=== PATIENT | female | born 1945 | race Caucasian/White ===

== ENCOUNTER 2024-07-27 08:50 | Observation (INO) | payer MEDICARE ==
[2024-07-22 13:25] LABS: BASOPHILS # (AUTO) 0.1 X10'3 (0-0.2); EOSINOPHILS # (AUTO) 0.1 X10'3 (0-0.9); EOSINOPHILS % (AUTO) 0.7 % (0-6); LYMPHOCYTES # (AUTO) 1.3 X10'3 (1.1-4.8); LYMPHOCYTES % (AUTO) 14.3 % (21-51); MEAN CORPUSCULAR HEMOGLOBIN 30.5 PG (27.0-31.0); MEAN CORPUSCULAR HGB CONC 33.5 g/dL (33.0-36.5); MEAN CORPUSCULAR VOLUME 91.1 FL (78-98); MEAN PLATELET VOLUME 7.3 FL (7.4-10.4); MONOCYTES # (AUTO) 0.5 X10'3 (0-0.9); MONOCYTES % (AUTO) 5.9 % (2-12); NEUTROPHILS # (AUTO) 7.1 X10'3 (1.8-7.7); NEUTROPHILS % (AUTO) 78.1 % (42-75); PRE OP HEMATOCRIT 44.8 % (35.0-45.0); PRE OP PLATELET COUNT 357 X10'3 (140-440); PRE OP WHITE BLOOD COUNT 9.2 10'3 (4.8-10.8); RED BLOOD COUNT 4.92 X10'6 (4.20-5.60); RED CELL DISTRIBUTION WIDTH 15.1 % (11.5-14.5)
[2024-07-22 13:35] LABS: ALBUMIN 3.7 G/DL (3.4-5.0); ALBUMIN/GLOBULIN RATIO 0.9 (1.1-1.5); ALKALINE PHOSPHATASE 47 IU/L (46-116); BLOOD UREA NITROGEN 10 MG/DL (7-18); BUN/CREATININE RATIO 10.6 (10.0-20.0); CALCIUM 8.5 MG/DL (8.5-10.1); CHLORIDE 99 MMOL/L (99-107); CREATININE 0.94 MG/DL (0.40-0.90); PRE OP ALT 18 U/L (30-65); PRE OP ANION GAP 8 (8-16); PRE OP AST 20 U/L (10-37); PRE OP BILIRUB, TOTAL 0.5 MG/DL (0.0-1.0); PRE OP GLUCOSE 99 MG/DL (70-104); PRE OP POTASSIUM 4.5 MMOL/L (3.4-5.1); PRE OP SODIUM 136 MMOL/L (135-145); TOTAL CARBON DIOXIDE 29.5 MMOL/L (24-32); TOTAL PROTEIN 7.7 G/DL (6.4-8.2); eGFR 58 ML/MIN
[~2024-07-27] VITALS: Ht 170.2 cm; Wt 48.3 kg
[2024-07-27] VITALS (30 sets, daily range): BP systolic 128–172; BP diastolic 53–86; PULSE 59–86; RESP 11–18; TEMP 97–98.4; O2SAT 88–100
[2024-07-27] MEDS: ceFAZolin 2gm in dextrose, iso 50 ML IV ONE (05:30)
[~2024-07-27 08:50] MED LIST: DEXT30CA6 PO; ENAL10TA PO; SIMV-342 PO
[2024-07-27] MEDS ORDERED: BUPIVAcaine 2.5mg/ml inj 50ml vial (contains preservative) ONE (09:18)
[2024-07-27] MEDS ORDERED: methylene blue (5mg/ml) 50mg/10ml ampul IV ONE (09:18)
[2024-07-27] MEDS: famotidine 20mg tablet PO ONE (09:33)
[2024-07-27] MEDS: ringers solution, lacted 1,000 ML IV SCH ×2 (09:33→16:31)
[2024-07-27] MEDS ORDERED: LIDOcaine 1%/PF 5ML 10 MG/ML VIAL ONE (11:09)
[2024-07-27] MEDS ORDERED: propofol inj 20 ML IV ONE (11:09)
[2024-07-27] MEDS ORDERED: ROPIVAcaine 0.5% (5mg/ml) 30ml vial ONE (11:09)
[2024-07-27] MEDS ORDERED: sevoflurane 250ml liquid IH ONE (11:15)
[2024-07-27] MEDS ORDERED: labetalol 20mg/4ml (5mg/ml) syringe IV ONE (11:40)
[2024-07-27] MEDS ORDERED: glycopyrrolate 0.2mg/ml inj ONE (11:47)
[2024-07-27] MEDS ORDERED: ePHEDrine 50MG/ML INJ. ONE (11:47)
[2024-07-27] MEDS ORDERED: fentaNYL/PF 50MCG/1 ML 2ML syringe ONE (12:07)
[2024-07-27] MEDS: methylene blue (5mg/ml) 50mg/10ml ampul IV ONE (12:15)
[2024-07-27] MEDS ORDERED: fentaNYL/PF 50MCG/1 ML 2ML syringe IV PRN (12:35)
[2024-07-27] MEDS ORDERED: hydrALAZINE 20mg/ml inj. IV PRN (12:35)
[2024-07-27] MEDS ORDERED: proCHLORperazine 10 MG/2 ml inj IV PRN (12:35)
[2024-07-27] MEDS ORDERED: labetalol 20mg/4ml (5mg/ml) syringe IV PRN (12:35)
[2024-07-27] MEDS ORDERED: ondansetron/PF 4mg/2ml inj ONE (12:57)
[2024-07-27] MEDS: BUPIVAcaine 2.5mg/ml inj 50ml vial (contains preservative) SQ ONE (13:15)
[2024-07-27] MEDS: morphine 2 MG/ML inj. syringe IV PRN (13:19)
[2024-07-27] MEDS ORDERED: morphine 2 MG/ML inj. syringe IV PRN (13:55)
[2024-07-27] MEDS: ondansetron/PF 4mg/2ml inj IV PRN ×2 (13:57→16:32)
[2024-07-27] MEDS: meperidine/PF 25mg/ml syringe IV PRN (14:23)
[2024-07-27] MEDS: HYDROcodone/acetaminophen 5mg/325mg tablet PO PRN (16:32)
[2024-07-27] MEDS ORDERED: potassium Cl 40MEQ/1/2NS 520ml 520 ML IV PRN (16:35)
[2024-07-27] MEDS ORDERED: ondansetron/PF 4mg/2ml inj IV PRN (16:35)
[2024-07-27] MEDS ORDERED: magnesium sulf-water 4G/100mL 100 ML IV PRN (16:35)
[2024-07-27] MEDS ORDERED: magnesium sulf-water 2g/50mL 50 ML IV PRN (16:35)
[2024-07-27] MEDS ORDERED: mag hydrox/Alum hydrox/simeth 30ml oral suspension PO PRN (16:35)
[2024-07-27] MEDS ORDERED: potassium Cl 20 mEq SR tablet PO PRN ×2 (16:35)
[2024-07-27] MEDS ORDERED: magnesium Cl slow-release 64mg tablet PO PRN (16:35)
[2024-07-27] MEDS ORDERED: acetaminophen 325mg tablet PO PRN ×2 (16:35)
[2024-07-27] MEDS: ceFAZolin 2gm in dextrose, iso 50 ML IV SCH (17:07)
[2024-07-27] MEDS: K and/or MAG REPLACEMENT MC SCH (20:00)
[2024-07-27] MEDS: enoxaparin 40mg/0.4ml syringe SUBCUT SCH (20:08)
[2024-07-27] MEDS: HYDROcodone/acetaminophen 10/325mg tab PO PRN (20:14)
[2024-07-27] MEDS: normal saline 1000ml 1,000 ML IV SCH (21:36)
[2024-07-28 02:00] VITALS: BP 140/55; PULSE 72; RESP 16; TEMP 98.3; O2SAT 95
[2024-07-28] MEDS: HYDROcodone/acetaminophen 5mg/325mg tablet PO PRN (02:38)
[2024-07-28 04:42] LABS: BASOPHILS % (AUTO) 0.4 % (0-1); EOSINOPHILS # (AUTO) 0.1 X10'3 (0-0.9); EOSINOPHILS % (AUTO) 0.8 % (0-6); HEMATOCRIT 38.2 % (35.0-45.0); LYMPHOCYTES # (AUTO) 0.7 X10'3 (1.1-4.8); LYMPHOCYTES % (AUTO) 7.7 % (21-51); MEAN CORPUSCULAR HEMOGLOBIN 30.9 PG (27.0-31.0); MEAN CORPUSCULAR HGB CONC 33.9 g/dL (33.0-36.5); MEAN CORPUSCULAR VOLUME 91.2 FL (78-98); MEAN PLATELET VOLUME 7.4 FL (7.4-10.4); MONOCYTES # (AUTO) 0.6 X10'3 (0-0.9); MONOCYTES % (AUTO) 6.1 % (2-12); PLATELET COUNT 292 X10'3 (140-440); RED BLOOD COUNT 4.19 X10'6 (4.20-5.60); RED CELL DISTRIBUTION WIDTH 14.9 % (11.5-14.5); WHITE BLOOD COUNT 9.4 X10'3 (4.5-11.0)
[2024-07-28 04:53] LABS: PROTHROMBIN TIME 10.4 SECONDS (9.0-12.0)
[2024-07-28 05:11] LABS: ALBUMIN 3.2 G/DL (3.4-5.0); ANION GAP 1 (8-16); BLOOD UREA NITROGEN 11 MG/DL (7-18); BUN/CREATININE RATIO 10.9 (10.0-20.0); CALCIUM 8.3 MG/DL (8.5-10.1); CHLORIDE 103 MMOL/L (99-107); CREATININE 1.01 MG/DL (0.40-0.90); GLUCOSE 114 MG/DL (70-104); MAGNESIUM 1.6 MG/DL (1.5-2.4); PHOSPHORUS 3.5 MG/DL (2.3-4.5); POTASSIUM 4.7 MMOL/L (3.5-5.1); SODIUM 136 MMOL/L (135-145); TOTAL CARBON DIOXIDE 32.4 MMOL/L (24-32); eCRCL 36 ML/MIN; eGFR 53 ML/MIN
[2024-07-28 06:00] VITALS: BP 127/61; PULSE 80; RESP 16; TEMP 98.8; O2SAT 94
[2024-07-28] MEDS: DEXTROAMP AMPHET 30 MG PO SCH (08:00)
[2024-07-28 08:45] VITALS: BP_SYST 123; PULSE 69
[2024-07-28] MEDS: simvastatin 20mg tablet PO SCH (08:45)
[2024-07-28] MEDS: lisinopril 20mg tablet PO SCH (08:45)
[2024-07-28 08:50] VITALS: RESP 18; O2SAT 98
[2024-07-28 14:10] VITALS: RESP 16
== END 2024-07-28 14:25 | disposition home or self-care (01) ==
LOC: PAS 08:50 → PAS IN 13:51 → SUR 3N 16:20
PROVIDERS: ADMIT Surgery; ATTEND Surgery
DX: C50.112 Malignant neoplasm of central portion of left female breast (principal); C77.3 Secondary and unspecified malignant neoplasm of axilla and upper limb lymph nodes; I10 Essential (primary) hypertension; F17.210 Nicotine dependence, cigarettes, uncomplicated; E78.5 Hyperlipidemia, unspecified; Z17.0 Estrogen receptor positive status [ER+]; Z79.899 Other long term (current) drug therapy; Z86.2 Personal history of diseases of the blood and blood-forming organs and certain disorders involving the immune mechanism
CPT/HCPCS: 19303; 38525; 38792; 80048; 80053; 83735; 84100; 85610; 86885; 86900; 86901; 93005; 96365; 96366; 96372; 96375; A4215; A4615; A4618; A6446; A7000; G0378; J0690; J2371; J3490; J7120; Q9968; 36415; 85025; 87081; 88307; 88341; 88342; 96376; A6253; A6258; A6449; C9250; J1650; J2175; J2270; J2405; J2704; J2795; J3010; J7030